=== PATIENT | female | born 1990 | race Caucasian/White ===

== ENCOUNTER 2019-02-20 02:14 | Emergency (ER) | payer MEDICARE, OTHER ==
[~2019-02-20] VITALS: Ht 162.6 cm; Wt 93.2 kg
[2019-02-20] MEDS ORDERED: predniSONE 20 mg tablet PO ONE (02:50)
[2019-02-20] MEDS ORDERED: LORazepam 1 MG tablet PO ONE (02:55)
[2019-02-20 03:54] VITALS: BP 169/101
[2019-02-20] MEDS ORDERED: PRED20TA PO (03:54)
[2019-02-20] MEDS ORDERED: MECL-111 PO (03:54)
== END 2019-02-20 04:00 | disposition home or self-care (01) ==
LOC: ER 02:15
DX: R42 Dizziness and giddiness (principal); R06.02 Shortness of breath; R05 Cough; R22.0 Localized swelling, mass and lump, head; R09.89 Other specified symptoms and signs involving the circulatory and respiratory systems; J00 Acute nasopharyngitis [common cold]
CPT/HCPCS: 99283; J7512